=== PATIENT | female | born 1990 | race Two or more races ===

== ENCOUNTER 2023-05-03 00:07 | Observation (INO) | payer MEDICAID ==
[~2023-05-03] VITALS: Ht 170.2 cm; Wt 118.0 kg
[~2023-05-03 00:07] MED LIST: HYDR-1421; PRON100T
[2023-05-03 00:40] LABS: Basophils # (auto) 0.1 10 ^3/uL (0-0.2); Basophils % (auto) 0.9 % (0.0-2.0); Eosinophils # (auto) 0 10 ^3/uL (0-0.8); Eosinophils % (auto) 0.3 % (0.0-7.0); Hematocrit 43.1 % (36.0-46.0); Hemoglobin 14.5 g/dL (12.2-16.2); Lymphocytes # (auto) 3.1 10 ^3/uL (0.4-5.4); Lymphocytes % (auto) 39.8 % (10.0-50.0); Mean Corpuscular Hemoglobin 28.5 pg (28.0-32.0); Mean Corpuscular Hgb Conc. 33.6 g/dL (32.0-36.0); Mean Corpuscular Volume 84.9 fL (80.0-100.0); Monocytes # (auto) 0.5 10 ^3/uL (0-1.3); Monocytes % (auto) 6.6 % (0.0-12.0); Neutrophils % (auto) 52.4 % (37.0-80.0); Nucleated Red Blood Cells % 0.1 %; Red Blood Cells 5.08 10^6/uL (4.0-5.20); White Blood Cell 7.7 10^3/uL (4.4-10.8)
[2023-05-03 00:51] LABS: INR 1.03 (0.9-1.15); Partial Thromboplastin Time 26.1 SEC (24.5-34.5); Prothrombin Time 10.8 sec (9.3-11.8)
[2023-05-03 00:55] LABS: Albumin 3.6 g/dL (3.4-5.0); BUN/Creatinine Ratio 17.2 (10.0-20.0); Magnesium 2.2 mg/dL (1.6-2.6); Potassium 4.1 mmol/L (3.5-5.1)
[2023-05-03 00:58] LABS: Bilirubin, Total 0.5 mg/dL (0.2-1.0); Total Protein 7.9 g/dL (6.4-8.2)
[2023-05-03 01:14] LABS: Urine Bacteria NONE SEEN /hpf (None Seen); Urine Blood 3+ /uL (Negative); Urine Clarity Clear (Clear); Urine Color Colorless (Yellow); Urine Protein, UAD Negative (Negative); Urine Urobilinogen Normal (Negative); Urine WBC 6 /hpf (0 - 5)
[2023-05-03 05:15] VITALS: PULSE 63; RESP 21; O2SAT 96
[2023-05-03] MEDS ORDERED: DOCUSATE SOD 100 MG CAP PO PRN (07:30)
[2023-05-03] MEDS ORDERED: NITROGLYCERIN 0.4 MG SL TAB SL PRN (07:30)
[2023-05-03] MEDS ORDERED: DEXTROSE (50%) 50ML SYRG IV PRN (07:30)
[2023-05-03] MEDS ORDERED: ACETAMINOPHEN 325 MG TAB PO PRN (07:30)
[2023-05-03] MEDS ORDERED: ONDANSETRON HCL 4 MG/2 ML VIAL IV PRN (07:30)
[2023-05-03] MEDS ORDERED: HYDROcodone-ACET 5/325MG TAB PO PRN (07:30)
[2023-05-03] MEDS ORDERED: MORPHINE SULFATE INJ 2 MG/ml SYRG IV PRN (07:30)
[2023-05-03 07:41] VITALS: PULSE 76; RESP 19; O2SAT 96
[2023-05-03] MEDS: cefTRIAXone 1GM/50ML D5W 50 ML IV SCH (09:02)
[2023-05-03] MEDS: SODIUM CHLORIDE 0.9% 1,000 ML IV SCH ×2 (09:02→18:07)
[2023-05-03] MEDS: ENOXAPARIN SOD 40 MG/0.4 ML SYRINGE SC SCH (09:15)
[2023-05-03] MEDS: ACCU-CHEK COMFORT CURVE STRIP VI SCH ×3 (12:30→22:02)
[2023-05-03] MEDS: InsuLIN REG 1unit/0.01ml Soln (100units/ml) SC SCH ×2 (13:03→18:04)
[2023-05-03 19:30] VITALS: PULSE 88; RESP 16; O2SAT 95
[2023-05-03] MEDS ORDERED: InsuLIN REG 1unit/0.01ml Soln (100units/ml) SC SCH (22:00)
[2023-05-03 22:55] VITALS: BP 136/79; PULSE 68; PULSE 72; RESP 18; TEMP 98.3; O2SAT 96
[2023-05-03] MEDS ORDERED: INSU100I28 IJ (23:03)
[2023-05-03] MEDS ORDERED: INSU1INJ19 SC (23:03)
[2023-05-04] MEDS: SODIUM CHLORIDE 0.9% 1,000 ML IV SCH (03:41)
[2023-05-04 05:00] VITALS: BP 142/88; PULSE 59; RESP 18; TEMP 97.7; O2SAT 99
[2023-05-04] MEDS: ACCU-CHEK COMFORT CURVE STRIP VI SCH ×2 (06:08→12:25)
[2023-05-04] MEDS: InsuLIN REG 1unit/0.01ml Soln (100units/ml) SC SCH ×2 (06:10→12:27)
[2023-05-04 07:11] LABS: Basophils # (auto) 0 10 ^3/uL (0-0.2); Basophils % (auto) 0.4 % (0.0-2.0); Eosinophils # (auto) 0 10 ^3/uL (0-0.8); Eosinophils % (auto) 0.5 % (0.0-7.0); Hemoglobin 13.4 g/dL (12.2-16.2); Lymphocytes % (auto) 48.8 % (10.0-50.0); Mean Corpuscular Hemoglobin 28.5 pg (28.0-32.0); Mean Corpuscular Hgb Conc. 33.4 g/dL (32.0-36.0); Mean Corpuscular Volume 85.4 fL (80.0-100.0); Monocytes # (auto) 0.3 10 ^3/uL (0-1.3); Monocytes % (auto) 5.6 % (0.0-12.0); Neutrophils # (auto) 2.7 10 ^3/uL (1.6-8.6); Neutrophils % (auto) 44.7 % (37.0-80.0); Nucleated Red Blood Cells % 0.2 %; Red Blood Cells 4.69 10^6/uL (4.0-5.20); Red Cell Distribution Width 13.1 % (11.8-14.3); White Blood Cell 6.1 10^3/uL (4.4-10.8)
[2023-05-04 08:00] VITALS: PULSE 54; PULSE 57; RESP 18; TEMP 36.5; O2SAT 95
[2023-05-04 08:08] LABS: Calcium 8.3 mg/dL (8.5-10.1); Potassium 4.1 mmol/L (3.5-5.1)
[2023-05-04 09:00] VITALS: BP 122/79; PULSE 57; RESP 18; TEMP 97.3; O2SAT 95
[2023-05-04] MEDS: ENOXAPARIN SOD 40 MG/0.4 ML SYRINGE SC SCH (10:00)
[2023-05-04] MEDS: cefTRIAXone 1GM/50ML D5W 50 ML IV SCH (10:00)
[2023-05-04 13:00] VITALS: BP 142/91; PULSE 70; RESP 20; TEMP 98; O2SAT 95
[2023-05-04] MEDS ORDERED: CEPH500C PO (13:50)
[2023-05-04 15:00] VITALS: TEMP 36.5
== END 2023-05-04 15:50 | disposition home or self-care (01) ==
LOC: ER 00:08 → TELE 07:28 → TELE-WESTW 22:50
PROVIDERS: ADMIT Nurse Practitioner Family; ATTEND Internal Medicine
DX: I95.1 Orthostatic hypotension (principal); E11.65 Type 2 diabetes mellitus with hyperglycemia; R07.89 Other chest pain; N39.0 Urinary tract infection, site not specified; R31.29 Other microscopic hematuria; K52.9 Noninfective gastroenteritis and colitis, unspecified; I10 Essential (primary) hypertension; E66.01 Morbid (severe) obesity due to excess calories; Z79.899 Other long term (current) drug therapy
CPT/HCPCS: 36415; 70450; 70551; 71045; 80048; 80053; 81001; 82962; 83735; 83880; 84484; 85025; 85610; 85730; 93005; 93306; 96361; 96365; 96366; 96372; 97116; 97163; 97530; 99285; G0378; J0696; J1650; J1815; J7030